=== PATIENT | male | born 1955 | race Caucasian/White ===

== ENCOUNTER 2024-02-27 00:55 | Inpatient (IN) | payer MEDICARE, SELFPAY ==
[2024-02-27 01:15] VITALS: BP 109/71; PULSE 86; RESP 18; TEMP 36.5; O2SAT 96
[2024-02-27 01:49] VITALS: BMI 30.5
--- NOTE | 2024-02-27 03:04 | PC.ADMIT ---
patient is a hospital to hospital transfer from [facility], He had a COPD exacerbation and SI, he arrived on unit 02/27/24@0115 via stretcher, he is a CV, has HX Schizophrenia, Bipolar, PTSD, Medical Hx lung CA with right Pneumonectomy, COPD, epilepsy and ETOH d/o, p86, r18, 109/71, SAO2 96%@RA but has wheezing, hospitalist aware, pt had SI d/t medicaid took his SSI money but he now denies SI and contracts for safety, patient was calm, A&O to person, time and Place, and stated his goal for this admission was to get the voices to stop , patient signed 3 consents and answered a few questions and quickly became irritable and agitated and shut down declining to participate in admission, patient was visible tired and was put to bed and went right to sleep, patient came with [facility], a black t shirt and wheeled walker, patient said all of his belongings are at [facility].
[2024-02-27 08:00] VITALS: BP 108/76; PULSE 89; RESP 16; TEMP 36; O2SAT 93
--- NOTE | 2024-02-27 08:13 | P.HPPS_ITS ---
HPI Date of Service: 02/27/24 Chief Complaint: Schizophrenia Sources of Information: patient interviewed, chart reviewed and crisis/core team assessment reviewed HPI Subjective Notes: Bustos Warning Narrative: The patient is a 68-year-old male, single, with no children, chronically homeless for several years, with a past history of alcohol use disorder, psychosis and suicidality. The patient was initially admitted at [facility] in [place] from outside of our catchment area, from [place], for suicidal ideation. While he was at the psychiatric hospital the patient decompensated medically, he had shortness of breath and he was transfer to [facility] for medical clearance. He was medically cleared and transferred here for psychiatric stabilization. The patient while he was at [facility] reported that he was feeling much better with no suicidal ideation. Even though, he was transferring to this facility for continuation of care and treatment of his dysphoria. On the intake interview, the patient reported that he was initially suicidal a few days ago but currently he adamantly denies suicidal ideation. He admitted a past history of alcohol use disorder with chronic homelessness and several detox and rehabs. His last use of alcohol was at least 3 weeks ago. He has several prior admissions into the psychiatric hospital for suicidality. He also admitted a past history of psychotic symptoms in the context of psychosocial stressors such as paranoia, disorganized behavior and auditory hallucinations. At the moment of the interview, the patient was able to contract for safety and he was willing to verbalize that he felt overwhelmed. According to the nursing staff, when he came last night he was very irritable and angry and cooperative with care. He denies active psychotic symptoms. He also reported that he has a past history of seizure disorder and he was requesting his Dilantin. Past Psychiatric History: He has an extensive psychiatric history as places report with several admissions into the hospital for suicidality. He also reported history of substance abuse with alcohol use disorder with detox and rehabs. He is chronically homeless. Medical Evaluation Reviewed: Yes PMF Narrative: COPD Alcohol use disorder chronic Family History: Denies Social History: Chronically homeless, no history of previous marriages or children poor social support. Substance History: As per his report past history of alcohol use disorder with several detox and rehabs well-healed reported legal encounters due to alcohol use disorder. Trauma History: Refused to elaborate Diagnostics Vital Signs (24Hr): Vital Signs - 24 hr 02/27/24 01:15 Temperature 97.7 F Pulse Rate 86 Respiratory Rate 18 Blood Pressure 109/71 Pulse Oximetry 96 Oxygen Delivery Method Room Air BMI result Body Mass Index 30.5 Meds/Allergies Meds Home Medications ?Medication ?Instructions ?Recorded ?Confirmed ?Type albuterol sulfate 90 mcg/actuation 4 puff inhalation Q4H PRN 02/27/24 02/27/24 History aerosol inhaler (Ventolin HFA) Shortness Of Breath Or Wheezing dextromethorphan-guaifenesin 10 10 ml PO Q4H PRN Cough 02/27/24 02/27/24 History mg-100 mg/5 mL oral syrup divalproex 250 mg tablet,delayed 750 mg PO TID 02/27/24 02/27/24 History release (Depakote) finasteride 5 mg tablet 5 mg PO DAILY 02/27/24 02/27/24 History gabapentin 300 mg capsule 300 mg PO TID 02/27/24 02/27/24 History pantoprazole 20 mg tablet,delayed 20 mg PO DAILY 02/27/24 02/27/24 History release phenytoin sodium extended 200 mg 200 mg PO BID 02/27/24 02/27/24 History capsule propranolol 10 mg tablet 10 mg PO BID 02/27/24 02/27/24 History quetiapine 300 mg tablet 300 mg PO BEDTIME 02/27/24 02/27/24 History quetiapine 400 mg tablet 400 mg PO BID 02/27/24 02/27/24 History tamsulosin 0.4 mg capsule 0.4 mg PO DAILY 02/27/24 02/27/24 History tiotropium bromide 2.5 2 puff inhalation DAILY 02/27/24 02/27/24 History mcg/actuation mist for inhalation Allergies Allergies Allergy/AdvReac Type Severity Reaction Status Date / Time levetiracetam [From [facility]] Allergy Unknown Unknown Verified 02/27/24 00:42 contrast dye Allergy Unknown unknown Uncoded 02/27/24 00:42 Mental Status Exam Mental Status Exam Patient Appearance: Well Grooomed and Appropriate Patient Orientation: Person and Situation Level of Consciousness: Awake and Appropriate Patient Behavior: Appropriate Mood Description: Calm and Withdrawn Affect Description: Constricted Ability to Follow Directions: Good Speech Pattern: Clear Hallucinations: None Delusions: Ideas of Reference Thought Process: Goal Oriented and Linear Thought Content: positive for Circumstantial Judgement: Poor Assessment & Plan Assessment & Plan (1) Alcohol use disorder: Status: Acute Code(s): F10.90 - Alcohol use, unspecified, uncomplicated (2) Mood disorder: Status: Acute Code(s): F39 - Unspecified mood [affective] disorder (3) Psychosis: Status: Acute Code(s): F29 - Unspecified psychosis not due to a substance or known physiological condition (4) Homelessness: Status: Acute Code(s): Z59.00 - Homelessness unspecified Plan The patient is an elderly male, single, with no children with poor social support with a past history of alcohol use disorder, chronic homelessness, psychosis and mood lability initially admitted at another hospital for suicidality but later on transferred to [facility] for shortness of breast. Medically cleared and transferred hearing to this facility for continuation of care at this moment the patient denies suicidal ideation. Plan 1. Gather collateral information. 2. 15 minute checks since the patient is able to contract for safety. 3. Continue with Seroquel and other psychotropics as prescribed. 4. Medical follow-up. 5. Reassessment results Patient educated on: diagnosis, medication risk/benefits and medical condition Reason for continued inpatient stay Substantial Risk for: inability to function, rapid decompensation and med/psych decompensation Statement Statement: I have reviewed the history and physical and performed a pertinent examination on my patient. No changes have occurred unless specified. If the History and Physical was not performed prior to admission, the Hospitalist's service will be consulted for completing the admission physical. Time Spent With Patient Time: Total time managing care of this patient today _45___ minutes.
--- NOTE | 2024-02-27 08:43 | PM.EVENT ---
Event Note Date of Service: 02/27/24 Event Note: attempted to meet with pt for new admission medical consult. we reviewed his medical hx, BPH, GERD, COPD with recent exacerbation and ?PNA, hx lung cancer s/p R pneumonectomy, epilepsy (last seizure 3-4 weeks ago) with triggers being lack of medication or sleep, as well as hx of etoh abuse. his last drink was 1 month ago, has been drinking heavily 1x/week for 20+ years. he became very agitated and refused to talk more and threatened to walk off the unit until he has his belongings. I assured him we would work on this and became more angry and walked out. Time Spent With Patient Time: Total time managing care of this patient today 10 minutes.
--- NOTE | 2024-02-27 10:12 | PC.NURSE ---
Abelino refused all of his morning medications. Reported he won't take them unless I find his clothes . Pt was sitting in bed dressed, no note about belonging missing. Will continue to monitor and MD Dr. Nowak made aware via [employer].
[2024-02-27] MEDS: Phenytoin Sodium Extended 100 MG CAPSULE 200 MG PO ×2 (13:50→20:13)
[2024-02-27] MEDS: Gabapentin 300 MG CAPSULE PO ×2 (15:01→20:15)
[2024-02-27] MEDS: Divalproex Sodium 250 MG TABLET.DR 750 MG PO ×2 (15:02→20:14)
[2024-02-27] MEDS: Albuterol Sulfate 90 MCG 8 GM INHALER 4 PUFF INHALE (18:33)
[2024-02-27] MEDS: QUEtiapine Fumarate 400 MG TABLET PO ×2 (18:44)
[2024-02-27 20:00] VITALS: BP 132/82; PULSE 90; RESP 16; TEMP 36.2; O2SAT 96
[2024-02-27 20:13] VITALS: BP 132/82; PULSE 90
[2024-02-27] MEDS: Propranolol HCL 10 MG TABLET PO (20:13)
[2024-02-27] MEDS: traZODone HCL 50 MG TABLET PO (20:15)
[2024-02-28 08:00] VITALS: RESP 18
[2024-02-28 13:42] VITALS: BMI 29.8
--- NOTE | 2024-02-28 14:27 | HO.PSYCHPN ---
Subjective Subjective Date of Service: 02/28/24 Reason For Visit: Schizophrenia Subjective Notes: Conditional Voluntary Interim History: The nursing staff reported the patient has refused blood work. He complained of sporadic auditory hallucinations. On interview the patient denies new symptoms states that he is doing much better and I advised him to be compliant with blood work. He is more concerned about his belongings that stayed behind. Mental Status Exam Mental Status Exam Patient Appearance: Appropriate Patient Orientation: Person and Situation Level of Consciousness: Awake and Appropriate Patient Behavior: Guarded and Passive Mood Description: Withdrawn Affect Description: Constricted Patient Cognition Impaired: Yes Ability to Follow Directions: Good Speech Pattern: Clear Hallucinations: None Delusions: Not Present Thought Process: Distracted and Slowed Thinking Thought Content: positive for [place] and positive for Circumstantial Judgement: Poor Diagnostics Vital Signs (24Hr): Vital Signs - 24 hr 02/27/24 20:00 02/27/24 20:00 02/27/24 20:13 Temperature 97.2 F 97.2 F Pulse Rate 90 90 90 Respiratory Rate 16 16 Blood Pressure 132/82 132/82 132/82 Pulse Oximetry 96 96 Oxygen Delivery Method Room Air Room Air 02/28/24 08:00 Temperature Pulse Rate Respiratory Rate 18 Blood Pressure Pulse Oximetry Oxygen Delivery Method BMI result Body Mass Index 29.8 Medications Medications Current Medications Acetaminophen (Acetaminophen 325 Mg Tablet) 650 mg PO Q6H PRN PRN Reason: Headache/Pain Mild Scale (1-3) Al Hydroxide/Mg Hydroxide (Magnesium Hydrox/Alum Hydrox 30 Ml Oral.Susp) 30 ml PO Q6H PRN PRN Reason: Heartburn/Nausea Albuterol Sulfate (Albuterol Sulfate 90 Mcg 8 Gm Inhaler) 4 puff INHALE Q4H PRN PRN Reason: Shortness Of Breath Or Wheezing Last Admin: 02/27/24 18:33 Dose: 4 puff Divalproex Sodium (Divalproex Sodium 250 Mg Tablet.Dr) 750 mg PO TID [facility] Last Admin: 02/28/24 10:59 Dose: Not Given Finasteride (Finasteride 5 Mg Tablet) 5 mg PO DAILY [facility] Last Admin: 02/28/24 10:59 Dose: Not Given Gabapentin (Gabapentin 300 Mg Capsule) 300 mg PO TID [facility] Last Admin: 02/28/24 11:00 Dose: Not Given Guaifenesin/Dextromethorphan (Guaifenesin Dm 200/20/10 Ml 10 Ml Syrup) 10 ml PO Q4H PRN PRN Reason: Cough Magnesium Hydroxide (Milk Of Magnesia 30 Ml Oral.Susp) 30 ml PO DAILY PRN PRN Reason: Constipation Nicotine (Nicotine 21 Mg Patch.Td24) 21 mg TRANSDERMA DAILY PRN PRN Reason: smoking cessation Nicotine Polacrilex (Nicotine Polacrilex 2 Mg Gum) 4 mg BUCCAL Q2H PRN PRN Reason: Nicotine Cravings Olanzapine (Olanzapine 5 Mg Tablet) 5 mg PO TID PRN PRN Reason: agitation Omeprazole (Omeprazole 20 Mg Capsule.Dr) 20 mg PO DAILY@0630 [facility] Last Admin: 02/28/24 06:19 Dose: Not Given Phenytoin Sodium (Phenytoin Sodium Extended 100 Mg Capsule) 200 mg PO BID [facility] Last Admin: 02/28/24 11:00 Dose: Not Given Propranolol HCl (Propranolol Hcl 10 Mg Tablet) 10 mg PO BID [facility]; Protocol Last Admin: 02/28/24 11:00 Dose: Not Given Quetiapine Fumarate (Quetiapine Fumarate 300 Mg Tablet) 300 mg PO BEDTIME [facility] Last Admin: 02/27/24 22:47 Dose: Not Given Quetiapine Fumarate (Quetiapine Fumarate 400 Mg Tablet) 400 mg PO BID@0900,1500 [facility] Last Admin: 02/27/24 18:44 Dose: 400 mg Tamsulosin HCl (Tamsulosin Hcl 0.4 Mg Capsule) 0.4 mg PO DAILY [facility] Last Admin: 02/28/24 11:00 Dose: Not Given Tiotropium [place] (Tiotropium [place] 2.5 Mcg 1 Puff/2.5 Mcg Mist.Inhal) 2 puff INHALE DAILY [facility] Last Admin: 02/28/24 11:00 Dose: Not Given Trazodone HCl (Trazodone Hcl 50 Mg Tablet) 50 mg PO BEDTIME MRX1 PRN PRN Reason: Insomnia Last Admin: 02/27/24 20:15 Dose: 50 mg Allergies Allergies Allergy/AdvReac Type Severity Reaction Status Date / Time levetiracetam [From [facility]] Allergy Unknown Unknown Verified 02/27/24 00:42 contrast dye Allergy Unknown unknown Uncoded 02/27/24 00:42 Assessment & Plan Assessment & Plan (1) Alcohol use disorder: Status: Acute Code(s): F10.90 - Alcohol use, unspecified, uncomplicated (2) Mood disorder: Status: Acute Code(s): F39 - Unspecified mood [affective] disorder (3) Psychosis: Status: Acute Code(s): F29 - Unspecified psychosis not due to a substance or known physiological condition (4) Homelessness: Status: Acute Code(s): Z59.00 - Homelessness unspecified Plan The patient is an elderly male, single, with no children with poor social support with a past history of alcohol use disorder, chronic homelessness, psychosis and mood lability initially admitted at another hospital for suicidality but later on transferred to [facility] for shortness of breast. Medically cleared and transferred hearing to this facility for continuation of care at this moment the patient denies suicidal ideation. Plan 1. Gather collateral information. 2. 15 minute checks since the patient is able to contract for safety. 3. Continue with Seroquel and other psychotropics as prescribed. 4. Medical follow-up. 5. Reassessment results Reason for continued inpatient stay Substantial Risk for: inability to function, rapid decompensation and med/psych decompensation Time Spent With Patient Time: Total time managing care of this patient today __20__ minutes.
[2024-02-28] MEDS: Tiotropium Bromide 2.5 mcg 1 PUFF/2.5 MCG MIST.INHAL 2 PUFF INHALE (15:34)
[2024-02-28] MEDS: Divalproex Sodium 250 MG TABLET.DR 750 MG PO ×2 (15:35→20:45)
[2024-02-28] MEDS: Gabapentin 300 MG CAPSULE PO ×2 (15:35→20:44)
[2024-02-28] MEDS: QUEtiapine Fumarate 400 MG TABLET PO (15:36)
--- NOTE | 2024-02-28 19:18 | PC.NURSE ---
Social work has located Abelino's belongings at [facility], staff is not able to pickling grader due to liability issues- Leadership will arrange retrieval of belongings. Abelino signed a three day notice on 02/28/24.
[2024-02-28 19:43] VITALS: BP 101/62; PULSE 96; RESP 18; TEMP 37; O2SAT 91
[2024-02-28] MEDS: Phenytoin Sodium Extended 100 MG CAPSULE 200 MG PO (20:44)
[2024-02-28] MEDS: Propranolol HCL 10 MG TABLET PO (20:44)
[2024-02-28] MEDS: QUEtiapine Fumarate 300 MG TABLET PO (20:44)
[2024-02-29] MEDS: Omeprazole 20 MG CAPSULE.DR PO (06:14)
[2024-02-29] MEDS: Finasteride 5 MG TABLET PO (10:27)
[2024-02-29] MEDS: QUEtiapine Fumarate 400 MG TABLET PO (10:27)
[2024-02-29] MEDS: Gabapentin 300 MG CAPSULE PO ×2 (10:28→20:53)
[2024-02-29] MEDS: Phenytoin Sodium Extended 100 MG CAPSULE 200 MG PO ×2 (10:28→20:53)
[2024-02-29] MEDS: Divalproex Sodium 250 MG TABLET.DR 750 MG PO ×2 (10:29→20:53)
[2024-02-29] MEDS: Tiotropium Bromide 2.5 mcg 1 PUFF/2.5 MCG MIST.INHAL 2 PUFF INHALE (10:30)
[2024-02-29] MEDS: Tamsulosin HCL 0.4 MG CAPSULE PO (10:31)
[2024-02-29 10:33] VITALS: BP 132/83; PULSE 97; RESP 18; TEMP 36.6; O2SAT 94
[2024-02-29] MEDS: Propranolol HCL 10 MG TABLET PO ×2 (10:56→20:53)
--- NOTE | 2024-02-29 11:49 | HO.PSYCHPN ---
Subjective Subjective Date of Service: 02/29/24 Reason For Visit: Schizophrenia Subjective Notes: Conditional Voluntary Interim History: The nursing staff reported the patient signed a 3 day notice since he was frustrated regarding his clothes. The administration has review his case and apparently his belongings are at another hospital [facility] but we can not go and pick it up. On interview the patient denies new symptoms he states that he hears sporadic auditory hallucinations but he is able to contract for safety. Mental Status Exam Mental Status Exam Patient Appearance: Well Grooomed Patient Orientation: Person and Situation Level of Consciousness: Awake and Appropriate Patient Behavior: Guarded and Passive Mood Description: Withdrawn Affect Description: Constricted Patient Cognition Impaired: Yes Ability to Follow Directions: Good Speech Pattern: Clear Hallucinations: None Delusions: Not Present Thought Process: Distracted and Slowed Thinking Thought Content: positive for [place] and positive for Poverty of Content Judgement: Poor Diagnostics Vital Signs (24Hr): Vital Signs - 24 hr 02/28/24 19:43 02/29/24 10:33 Temperature 98.6 F 97.9 F Pulse Rate 96 97 Respiratory Rate 18 18 Blood Pressure 101/62 132/83 Pulse Oximetry 91 L 94 Oxygen Delivery Method Room Air Room Air BMI result Body Mass Index 29.8 Medications Medications Current Medications Acetaminophen (Acetaminophen 325 Mg Tablet) 650 mg PO Q6H PRN PRN Reason: Headache/Pain Mild Scale (1-3) Al Hydroxide/Mg Hydroxide (Magnesium Hydrox/Alum Hydrox 30 Ml Oral.Susp) 30 ml PO Q6H PRN PRN Reason: Heartburn/Nausea Albuterol Sulfate (Albuterol Sulfate 90 Mcg 8 Gm Inhaler) 4 puff INHALE Q4H PRN PRN Reason: Shortness Of Breath Or Wheezing Last Admin: 02/27/24 18:33 Dose: 4 puff Divalproex Sodium (Divalproex Sodium 250 Mg Tablet.Dr) 750 mg PO TID [facility] Last Admin: 02/29/24 10:29 Dose: 750 mg Finasteride (Finasteride 5 Mg Tablet) 5 mg PO DAILY [facility] Last Admin: 02/29/24 10:27 Dose: 5 mg Gabapentin (Gabapentin 300 Mg Capsule) 300 mg PO TID [facility] Last Admin: 02/29/24 10:28 Dose: 300 mg Guaifenesin/Dextromethorphan (Guaifenesin Dm 200/20/10 Ml 10 Ml Syrup) 10 ml PO Q4H PRN PRN Reason: Cough Magnesium Hydroxide (Milk Of Magnesia 30 Ml Oral.Susp) 30 ml PO DAILY PRN PRN Reason: Constipation Nicotine (Nicotine 21 Mg Patch.Td24) 21 mg TRANSDERMA DAILY PRN PRN Reason: smoking cessation Nicotine Polacrilex (Nicotine Polacrilex 2 Mg Gum) 4 mg BUCCAL Q2H PRN PRN Reason: Nicotine Cravings Olanzapine (Olanzapine 5 Mg Tablet) 5 mg PO TID PRN PRN Reason: agitation Omeprazole (Omeprazole 20 Mg Capsule.Dr) 20 mg PO DAILY@0630 [facility] Last Admin: 02/29/24 06:14 Dose: 20 mg Phenytoin Sodium (Phenytoin Sodium Extended 100 Mg Capsule) 200 mg PO BID [facility] Last Admin: 02/29/24 10:28 Dose: 200 mg Propranolol HCl (Propranolol Hcl 10 Mg Tablet) 10 mg PO BID [facility]; Protocol Last Admin: 02/29/24 10:56 Dose: 10 mg Quetiapine Fumarate (Quetiapine Fumarate 300 Mg Tablet) 300 mg PO BEDTIME [facility] Last Admin: 02/28/24 20:44 Dose: 300 mg Quetiapine Fumarate (Quetiapine Fumarate 400 Mg Tablet) 400 mg PO BID@0900,1500 [facility] Last Admin: 02/29/24 10:27 Dose: 400 mg Tamsulosin HCl (Tamsulosin Hcl 0.4 Mg Capsule) 0.4 mg PO DAILY [facility] Last Admin: 02/29/24 10:31 Dose: 0.4 mg Tiotropium Avinger (Tiotropium [place] 2.5 Mcg 1 Puff/2.5 Mcg Mist.Inhal) 2 puff INHALE DAILY [facility] Last Admin: 02/29/24 10:30 Dose: 2 puff Trazodone HCl (Trazodone Hcl 50 Mg Tablet) 50 mg PO BEDTIME MRX1 PRN PRN Reason: Insomnia Last Admin: 02/27/24 20:15 Dose: 50 mg Allergies Allergies Allergy/AdvReac Type Severity Reaction Status Date / Time levetiracetam [From [facility]] Allergy Unknown Unknown Verified 02/27/24 00:42 contrast dye Allergy Unknown unknown Uncoded 02/27/24 00:42 Assessment & Plan Assessment & Plan (1) Alcohol use disorder: Status: Acute Code(s): F10.90 - Alcohol use, unspecified, uncomplicated (2) Mood disorder: Status: Acute Code(s): F39 - Unspecified mood [affective] disorder (3) Psychosis: Status: Acute Code(s): F29 - Unspecified psychosis not due to a substance or known physiological condition (4) Homelessness: Status: Acute Code(s): Z59.00 - Homelessness unspecified Plan The patient is an elderly male, single, with no children with poor social support with a past history of alcohol use disorder, chronic homelessness, psychosis and mood lability initially admitted at another hospital for suicidality but later on transferred to [facility] for shortness of breast. Medically cleared and transferred hearing to this facility for continuation of care at this moment the patient denies suicidal ideation. Plan 1. Gather collateral information. 2. 15 minute checks since the patient is able to contract for safety. 3. Continue with Seroquel and other psychotropics as prescribed. 4. Medical follow-up. 5. Reassessment results Reason for continued inpatient stay Substantial Risk for: inability to function, rapid decompensation and med/psych decompensation Time Spent With Patient Time: Total time managing care of this patient today __20__ minutes.
[2024-02-29 20:00] VITALS: BP 128/60; PULSE 89; RESP 16; TEMP 36.2; O2SAT 91
[2024-02-29 20:53] VITALS: BP 129/61; PULSE 72
[2024-02-29] MEDS: QUEtiapine Fumarate 300 MG TABLET PO (20:54)
[2024-03-01] MEDS: Omeprazole 20 MG CAPSULE.DR PO (06:20)
[2024-03-01 08:00] VITALS: BP 110/55; PULSE 83; RESP 18; TEMP 37.1; O2SAT 95
--- NOTE | 2024-03-01 08:40 | HO.PSYCHPN ---
Subjective Subjective Date of Service: 03/01/24 Reason For Visit: Schizophrenia Subjective Notes: Conditional Voluntary Interim History: Pt had episode of being once again very irritable about not having belonging with him- they are [place]. He did calm down later when explained that worse case scenario he can be sent to [facility] on his way home when discharged. He denies SI/HI. He reports plan to dc on Sunday and then go to [place] to [facility]. rest of the day, he was pleasant and visible on the unit. he reports morning dose of seroquel too sedating Diagnostics Vital Signs (24Hr): Vital Signs - 24 hr 02/29/24 10:33 02/29/24 20:00 02/29/24 20:53 Temperature 97.9 F 97.1 F Pulse Rate 97 89 72 Respiratory Rate 18 16 Blood Pressure 132/83 128/60 129/61 Pulse Oximetry 94 91 L Oxygen Delivery Method Room Air Room Air 03/01/24 08:00 Temperature 98.7 F Pulse Rate 83 Respiratory Rate 18 Blood Pressure 110/55 L Pulse Oximetry 95 Oxygen Delivery Method Room Air BMI result Body Mass Index 29.8 Medications Medications Current Medications Acetaminophen (Acetaminophen 325 Mg Tablet) 650 mg PO Q6H PRN PRN Reason: Headache/Pain Mild Scale (1-3) Al Hydroxide/Mg Hydroxide (Magnesium Hydrox/Alum Hydrox 30 Ml Oral.Susp) 30 ml PO Q6H PRN PRN Reason: Heartburn/Nausea Albuterol Sulfate (Albuterol Sulfate 90 Mcg 8 Gm Inhaler) 4 puff INHALE Q4H PRN PRN Reason: Shortness Of Breath Or Wheezing Last Admin: 02/27/24 18:33 Dose: 4 puff Divalproex Sodium (Divalproex Sodium 250 Mg Tablet.Dr) 750 mg PO TID [facility] Last Admin: 02/29/24 20:53 Dose: 750 mg Finasteride (Finasteride 5 Mg Tablet) 5 mg PO DAILY [facility] Last Admin: 02/29/24 10:27 Dose: 5 mg Gabapentin (Gabapentin 300 Mg Capsule) 300 mg PO TID [facility] Last Admin: 02/29/24 20:53 Dose: 300 mg Guaifenesin/Dextromethorphan (Guaifenesin Dm 200/20/10 Ml 10 Ml Syrup) 10 ml PO Q4H PRN PRN Reason: Cough Magnesium Hydroxide (Milk Of Magnesia 30 Ml Oral.Susp) 30 ml PO DAILY PRN PRN Reason: Constipation Nicotine (Nicotine 21 Mg Patch.Td24) 21 mg TRANSDERMA DAILY PRN PRN Reason: smoking cessation Nicotine Polacrilex (Nicotine Polacrilex 2 Mg Gum) 4 mg BUCCAL Q2H PRN PRN Reason: Nicotine Cravings Olanzapine (Olanzapine 5 Mg Tablet) 5 mg PO TID PRN PRN Reason: agitation Omeprazole (Omeprazole 20 Mg Capsule.Dr) 20 mg PO DAILY@0630 [facility] Last Admin: 03/01/24 06:20 Dose: 20 mg Phenytoin Sodium (Phenytoin Sodium Extended 100 Mg Capsule) 200 mg PO BID [facility] Last Admin: 02/29/24 20:53 Dose: 200 mg Propranolol HCl (Propranolol Hcl 10 Mg Tablet) 10 mg PO BID [facility]; Protocol Last Admin: 02/29/24 20:53 Dose: 10 mg Quetiapine Fumarate (Quetiapine Fumarate 300 Mg Tablet) 300 mg PO BEDTIME [facility] Last Admin: 02/29/24 20:54 Dose: 300 mg Quetiapine Fumarate (Quetiapine Fumarate 400 Mg Tablet) 400 mg PO BID@0900,1500 [facility] Last Admin: 02/29/24 18:42 Dose: Not Given Tamsulosin HCl (Tamsulosin Hcl 0.4 Mg Capsule) 0.4 mg PO DAILY [facility] Last Admin: 02/29/24 10:31 Dose: 0.4 mg Tiotropium [place] (Tiotropium [place] 2.5 Mcg 1 Puff/2.5 Mcg Mist.Inhal) 2 puff INHALE DAILY [facility] Last Admin: 02/29/24 10:30 Dose: 2 puff Trazodone HCl (Trazodone Hcl 50 Mg Tablet) 50 mg PO BEDTIME MRX1 PRN PRN Reason: Insomnia Last Admin: 02/27/24 20:15 Dose: 50 mg Allergies Allergies Allergy/AdvReac Type Severity Reaction Status Date / Time levetiracetam [From [facility]] Allergy Unknown Unknown Verified 02/27/24 00:42 contrast dye Allergy Unknown unknown Uncoded 02/27/24 00:42 Assessment & Plan Assessment & Plan (1) Alcohol use disorder: Status: Acute Code(s): F10.90 - Alcohol use, unspecified, uncomplicated (2) Mood disorder: Status: Acute Code(s): F39 - Unspecified mood [affective] disorder (3) Psychosis: Status: Acute Code(s): F29 - Unspecified psychosis not due to a substance or known physiological condition (4) Homelessness: Status: Acute Code(s): Z59.00 - Homelessness unspecified Plan The patient is an elderly male, single, with no children with poor social support with a past history of alcohol use disorder, chronic homelessness, psychosis and mood lability initially admitted at another hospital for suicidality but later on transferred to [facility] for shortness of breast. Medically cleared and transferred hearing to this facility for continuation of care at this moment the patient denies suicidal ideation. Plan 1. Gather collateral information. 2. 15 minute checks since the patient is able to contract for safety. 3. Continue with Seroquel and other psychotropics as prescribed- he does report seroquel sedating in morning and has declined it. 4. Medical follow-up. Reason for continued inpatient stay Substantial Risk for: inability to function Time Spent With Patient Time: Total time managing care of this patient today ____ minutes.
[2024-03-01] MEDS: Phenytoin Sodium Extended 100 MG CAPSULE 200 MG PO ×2 (09:31→20:59)
[2024-03-01] MEDS: Divalproex Sodium 250 MG TABLET.DR 750 MG PO ×2 (14:55→20:59)
[2024-03-01] MEDS: Gabapentin 300 MG CAPSULE PO ×2 (14:55→20:59)
[2024-03-01] MEDS: QUEtiapine Fumarate 400 MG TABLET PO (14:55)
[2024-03-01 20:00] VITALS: BP 107/57; PULSE 90; RESP 17; TEMP 36.9; O2SAT 93
[2024-03-01 20:58] VITALS: BP 107/57; PULSE 90
[2024-03-01] MEDS: Propranolol HCL 10 MG TABLET PO (20:58)
[2024-03-01] MEDS: QUEtiapine Fumarate 300 MG TABLET PO (20:58)
[2024-03-02] MEDS: Finasteride 5 MG TABLET PO (08:58)
[2024-03-02] MEDS: Tiotropium Bromide 2.5 mcg 1 PUFF/2.5 MCG MIST.INHAL 2 PUFF INHALE (08:58)
[2024-03-02] MEDS: Phenytoin Sodium Extended 100 MG CAPSULE 200 MG PO ×2 (08:59→20:29)
[2024-03-02] MEDS: Divalproex Sodium 250 MG TABLET.DR 750 MG PO ×3 (08:59→20:30)
[2024-03-02] MEDS: Omeprazole 20 MG CAPSULE.DR PO (09:00)
[2024-03-02] MEDS: Gabapentin 300 MG CAPSULE PO ×3 (09:00→20:29)
[2024-03-02 09:01] VITALS: BP 138/92; PULSE 84
[2024-03-02] MEDS: Tamsulosin HCL 0.4 MG CAPSULE PO (09:01)
[2024-03-02] MEDS: Propranolol HCL 10 MG TABLET PO ×2 (09:01→20:28)
[2024-03-02 09:05] VITALS: BP 138/92; PULSE 84; RESP 18; TEMP 36.8; O2SAT 96
--- NOTE | 2024-03-02 19:53 | P.PNPSI_ITS ---
Subjective Subjective Date of Service: 03/02/24 Reason For Visit: Schizophrenia Subjective Notes: Conditional Voluntary Interim History: Pt slept most of the night. Calmer, no episodes of irritability. Agreed with being sent to [facility] belongings on his way back home either Sunday or Sunday early in the morning. hold seroquel AM as pt reports sedation and not taking it in the AM. No behavioral concerns. Review of Systems Review of Systems Yes all other systems are reviewed and are negative Mental Status Exam Mental Status Exam Patient Appearance: Well Grooomed Patient Orientation: Person and Situation Level of Consciousness: Awake and Appropriate Patient Behavior: Guarded and Passive Mood Description: Withdrawn Affect Description: Constricted Patient Cognition Impaired: Yes Ability to Follow Directions: Good Speech Pattern: Clear Diagnostics Vital Signs (24Hr): Vital Signs - 24 hr 03/01/24 20:00 03/01/24 20:58 03/02/24 09:01 Temperature 98.5 F Pulse Rate 90 90 84 Respiratory Rate 17 Blood Pressure 107/57 L 107/57 L 138/92 H Pulse Oximetry 93 Oxygen Delivery Method Room Air 03/02/24 09:05 Temperature 98.2 F Pulse Rate 84 Respiratory Rate 18 Blood Pressure 138/92 H Pulse Oximetry 96 Oxygen Delivery Method Room Air BMI result Body Mass Index 29.8 Medications Medications Current Medications Acetaminophen (Acetaminophen 325 Mg Tablet) 650 mg PO Q6H PRN PRN Reason: Headache/Pain Mild Scale (1-3) Al Hydroxide/Mg Hydroxide (Magnesium Hydrox/Alum Hydrox 30 Ml Oral.Susp) 30 ml PO Q6H PRN PRN Reason: Heartburn/Nausea Albuterol Sulfate (Albuterol Sulfate 90 Mcg 8 Gm Inhaler) 4 puff INHALE Q4H PRN PRN Reason: Shortness Of Breath Or Wheezing Last Admin: 02/27/24 18:33 Dose: 4 puff Divalproex Sodium (Divalproex Sodium 250 Mg Tablet.Dr) 750 mg PO TID [facility] Last Admin: 03/02/24 14:28 Dose: 750 mg Finasteride (Finasteride 5 Mg Tablet) 5 mg PO DAILY [facility] Last Admin: 03/02/24 08:58 Dose: 5 mg Gabapentin (Gabapentin 300 Mg Capsule) 300 mg PO TID [facility] Last Admin: 03/02/24 14:28 Dose: 300 mg Guaifenesin/Dextromethorphan (Guaifenesin Dm 200/20/10 Ml 10 Ml Syrup) 10 ml PO Q4H PRN PRN Reason: Cough Magnesium Hydroxide (Milk Of Magnesia 30 Ml Oral.Susp) 30 ml PO DAILY PRN PRN Reason: Constipation Nicotine (Nicotine 21 Mg Patch.Td24) 21 mg TRANSDERMA DAILY PRN PRN Reason: smoking cessation Nicotine Polacrilex (Nicotine Polacrilex 2 Mg Gum) 4 mg BUCCAL Q2H PRN PRN Reason: Nicotine Cravings Olanzapine (Olanzapine 5 Mg Tablet) 5 mg PO TID PRN PRN Reason: agitation Omeprazole (Omeprazole 20 Mg Capsule.Dr) 20 mg PO DAILY@0630 [facility] Last Admin: 03/02/24 09:00 Dose: 20 mg Phenytoin Sodium (Phenytoin Sodium Extended 100 Mg Capsule) 200 mg PO BID [facility] Last Admin: 03/02/24 08:59 Dose: 200 mg Propranolol HCl (Propranolol Hcl 10 Mg Tablet) 10 mg PO BID [facility]; Protocol Last Admin: 03/02/24 09:01 Dose: 10 mg Quetiapine Fumarate (Quetiapine Fumarate 300 Mg Tablet) 300 mg PO BEDTIME [facility] Last Admin: 03/01/24 20:58 Dose: 300 mg Quetiapine Fumarate (Quetiapine Fumarate 400 Mg Tablet) 400 mg PO BID@0900,1500 [facility] Last Admin: 03/02/24 14:28 Dose: Not Given Tamsulosin HCl (Tamsulosin Hcl 0.4 Mg Capsule) 0.4 mg PO DAILY [facility] Last Admin: 03/02/24 09:01 Dose: 0.4 mg Tiotropium [place] (Tiotropium [place] 2.5 Mcg 1 Puff/2.5 Mcg Mist.Inhal) 2 puff INHALE DAILY [facility] Last Admin: 03/02/24 08:58 Dose: 2 puff Trazodone HCl (Trazodone Hcl 50 Mg Tablet) 50 mg PO BEDTIME MRX1 PRN PRN Reason: Insomnia Last Admin: 02/27/24 20:15 Dose: 50 mg Allergies Allergies Allergy/AdvReac Type Severity Reaction Status Date / Time levetiracetam [From [facility]] Allergy Unknown Unknown Verified 02/27/24 00:42 contrast dye Allergy Unknown unknown Uncoded 02/27/24 00:42 Assessment & Plan Assessment & Plan (1) Mood disorder: Status: Acute Code(s): F39 - Unspecified mood [affective] disorder (2) Alcohol use disorder: Status: Acute Code(s): F10.90 - Alcohol use, unspecified, uncomplicated (3) Psychosis: Status: Acute Code(s): F29 - Unspecified psychosis not due to a substance or known physiological condition (4) Homelessness: Status: Acute Code(s): Z59.00 - Homelessness unspecified Plan The patient is an elderly male, single, with no children with poor social support with a past history of alcohol use disorder, chronic homelessness, psychosis and mood lability initially admitted at another hospital for suicidality but later on transferred to [facility] for shortness of breast. Medically cleared and transferred hearing to this facility for continuation of care at this moment the patient denies suicidal ideation. Plan 03/01 dc morning seroquel as pt reports sedation in AM. continue all other doses. Reason for continued inpatient stay Substantial Risk for: inability to function Time Spent With Patient Time: Total time managing care of this patient today ____ minutes.
[2024-03-02 20:00] VITALS: BP 141/64; PULSE 87; RESP 16; TEMP 37.9; O2SAT 95
[2024-03-02] MEDS: traZODone HCL 50 MG TABLET PO (20:29)
[2024-03-02] MEDS: QUEtiapine Fumarate 300 MG TABLET PO (20:30)
[2024-03-02] MEDS: guaiFENesin DM 200/20/10 ML 10 ML SYRUP PO (20:35)
[2024-03-02 22:02] VITALS: RESP 18; TEMP 36.8
[2024-03-03] MEDS: Omeprazole 20 MG CAPSULE.DR PO (06:30)
[2024-03-03 08:00] VITALS: BP 146/81; PULSE 92; RESP 18; TEMP 36.9; O2SAT 95
[2024-03-03] MEDS: Tamsulosin HCL 0.4 MG CAPSULE PO (08:12)
[2024-03-03] MEDS: Phenytoin Sodium Extended 100 MG CAPSULE 200 MG PO ×2 (08:12→21:18)
[2024-03-03] MEDS: Propranolol HCL 10 MG TABLET PO ×2 (08:12→21:19)
[2024-03-03] MEDS: Gabapentin 300 MG CAPSULE PO ×3 (08:12→21:18)
[2024-03-03] MEDS: Finasteride 5 MG TABLET PO (08:12)
[2024-03-03] MEDS: Divalproex Sodium 250 MG TABLET.DR 750 MG PO ×3 (08:13→21:18)
[2024-03-03] MEDS: Tiotropium Bromide 2.5 mcg 1 PUFF/2.5 MCG MIST.INHAL 2 PUFF INHALE (08:17)
--- NOTE | 2024-03-03 13:27 | HO.PSYCHPN ---
Subjective Subjective Date of Service: 03/03/24 Reason For Visit: Schizophrenia Subjective Notes: Conditional Voluntary Interim History: The nursing staff reported the patient had been irritable refused his Seroquel in the morning. He is in a 3 day notice and his discharge will be most likely next Sunday. On interview the patient denies new symptoms he denies suicidal or homicidal thoughts or psychotic symptoms. Mental Status Exam Mental Status Exam Patient Appearance: Appropriate Patient Orientation: Person and Situation Level of Consciousness: Awake and Appropriate Patient Behavior: Guarded and Passive Mood Description: Withdrawn Affect Description: Constricted Patient Cognition Impaired: Yes Ability to Follow Directions: Good Speech Pattern: Clear Hallucinations: None Delusions: Not Present Thought Process: Distracted and Slowed Thinking Thought Content: positive for [place] and positive for Poverty of Content Judgement: Fair Diagnostics Vital Signs (24Hr): Vital Signs - 24 hr 03/02/24 20:00 03/02/24 22:02 03/03/24 08:00 Temperature 100.2 F 98.3 F 98.4 F Pulse Rate 87 92 Respiratory Rate 16 18 18 Blood Pressure 141/64 H 146/81 H Pulse Oximetry 95 95 Oxygen Delivery Method Room Air Room Air BMI result Body Mass Index 29.8 Medications Medications Current Medications Acetaminophen (Acetaminophen 325 Mg Tablet) 650 mg PO Q6H PRN PRN Reason: Headache/Pain Mild Scale (1-3) Al Hydroxide/Mg Hydroxide (Magnesium Hydrox/Alum Hydrox 30 Ml Oral.Susp) 30 ml PO Q6H PRN PRN Reason: Heartburn/Nausea Albuterol Sulfate (Albuterol Sulfate 90 Mcg 8 Gm Inhaler) 4 puff INHALE Q4H PRN PRN Reason: Shortness Of Breath Or Wheezing Last Admin: 02/27/24 18:33 Dose: 4 puff Divalproex Sodium (Divalproex Sodium 250 Mg Tablet.Dr) 750 mg PO TID [facility] Last Admin: 03/03/24 08:13 Dose: 750 mg Finasteride (Finasteride 5 Mg Tablet) 5 mg PO DAILY [facility] Last Admin: 03/03/24 08:12 Dose: 5 mg Gabapentin (Gabapentin 300 Mg Capsule) 300 mg PO TID [facility] Last Admin: 03/03/24 08:12 Dose: 300 mg Guaifenesin/Dextromethorphan (Guaifenesin Dm 200/20/10 Ml 10 Ml Syrup) 10 ml PO Q4H PRN PRN Reason: Cough Last Admin: 03/02/24 20:35 Dose: 10 ml Magnesium Hydroxide (Milk Of Magnesia 30 Ml Oral.Susp) 30 ml PO DAILY PRN PRN Reason: Constipation Nicotine (Nicotine 21 Mg Patch.Td24) 21 mg TRANSDERMA DAILY PRN PRN Reason: smoking cessation Nicotine Polacrilex (Nicotine Polacrilex 2 Mg Gum) 4 mg BUCCAL Q2H PRN PRN Reason: Nicotine Cravings Olanzapine (Olanzapine 5 Mg Tablet) 5 mg PO TID PRN PRN Reason: agitation Omeprazole (Omeprazole 20 Mg Capsule.Dr) 20 mg PO DAILY@0630 [facility] Last Admin: 03/03/24 06:30 Dose: 20 mg Phenytoin Sodium (Phenytoin Sodium Extended 100 Mg Capsule) 200 mg PO BID [facility] Last Admin: 03/03/24 08:12 Dose: 200 mg Propranolol HCl (Propranolol Hcl 10 Mg Tablet) 10 mg PO BID [facility]; Protocol Last Admin: 03/03/24 08:12 Dose: 10 mg Quetiapine Fumarate (Quetiapine Fumarate 300 Mg Tablet) 300 mg PO BEDTIME [facility] Last Admin: 03/02/24 20:30 Dose: 300 mg Quetiapine Fumarate (Quetiapine Fumarate 400 Mg Tablet) 400 mg PO DAILY@1500 [facility] Tamsulosin HCl (Tamsulosin Hcl 0.4 Mg Capsule) 0.4 mg PO DAILY [facility] Last Admin: 03/03/24 08:12 Dose: 0.4 mg Tiotropium [place] (Tiotropium [place] 2.5 Mcg 1 Puff/2.5 Mcg Mist.Inhal) 2 puff INHALE DAILY [facility] Last Admin: 03/03/24 08:17 Dose: 2 puff Trazodone HCl (Trazodone Hcl 50 Mg Tablet) 50 mg PO BEDTIME MRX1 PRN PRN Reason: Insomnia Last Admin: 03/02/24 20:29 Dose: 50 mg Allergies Allergies Allergy/AdvReac Type Severity Reaction Status Date / Time levetiracetam [From [facility]] Allergy Unknown Unknown Verified 02/27/24 00:42 contrast dye Allergy Unknown unknown Uncoded 02/27/24 00:42 Assessment & Plan Assessment & Plan (1) Mood disorder: Status: Acute Code(s): F39 - Unspecified mood [affective] disorder (2) Alcohol use disorder: Status: Acute Code(s): F10.90 - Alcohol use, unspecified, uncomplicated (3) Psychosis: Status: Acute Code(s): F29 - Unspecified psychosis not due to a substance or known physiological condition (4) Homelessness: Status: Acute Code(s): Z59.00 - Homelessness unspecified Plan The patient is an elderly male, single, with no children with poor social support with a past history of alcohol use disorder, chronic homelessness, psychosis and mood lability initially admitted at another hospital for suicidality but later on transferred to [facility] for shortness of breast. Medically cleared and transferred hearing to this facility for continuation of care at this moment the patient denies suicidal ideation. Plan 03/01 dc morning seroquel as pt reports sedation in AM. continue all other doses. Continue with same treatment. Reason for continued inpatient stay Substantial Risk for: inability to function, rapid decompensation and med/psych decompensation Time Spent With Patient Time: Total time managing care of this patient today _20___ minutes.
[2024-03-03 20:00] VITALS: BP 141/67; PULSE 77; RESP 18; TEMP 36.2; O2SAT 94
[2024-03-03] MEDS: QUEtiapine Fumarate 300 MG TABLET PO (21:20)
[2024-03-03] MEDS: traZODone HCL 50 MG TABLET PO (21:20)
[2024-03-03] MEDS: guaiFENesin DM 200/20/10 ML 10 ML SYRUP PO (22:00)
[2024-03-04] MEDS: Omeprazole 20 MG CAPSULE.DR PO (06:07)
[2024-03-04 08:00] VITALS: BP 138/87; PULSE 85; RESP 18; TEMP 36.8; O2SAT 95
[2024-03-04] MEDS: Tamsulosin HCL 0.4 MG CAPSULE PO (08:13)
[2024-03-04] MEDS: Divalproex Sodium 250 MG TABLET.DR 750 MG PO ×3 (08:13→20:55)
[2024-03-04] MEDS: Gabapentin 300 MG CAPSULE PO ×3 (08:13→20:55)
[2024-03-04] MEDS: Propranolol HCL 10 MG TABLET PO ×2 (08:13→20:56)
[2024-03-04] MEDS: Phenytoin Sodium Extended 100 MG CAPSULE 200 MG PO ×2 (08:14→20:56)
[2024-03-04] MEDS: Finasteride 5 MG TABLET PO (08:14)
--- NOTE | 2024-03-04 13:27 | P.PNPSI_ITS ---
Subjective Subjective Date of Service: 03/04/24 Reason For Visit: Schizophrenia Subjective Notes: Conditional Voluntary Interim History: The nursing staff reported the patient has refused his medication in the morning reports over-sedation Seroquel that is why his schedule has been changed. The 7th grade social studies teacher reported that he will be discharged tomorrow. On interview the patient denies new symptoms he feels that he is much better safe. Mental Status Exam Mental Status Exam Patient Appearance: Appropriate Patient Orientation: Person and Situation Level of Consciousness: Awake and Appropriate Patient Behavior: Guarded and Passive Mood Description: Withdrawn Affect Description: Constricted Patient Cognition Impaired: Yes Ability to Follow Directions: Good Speech Pattern: Clear Hallucinations: None Delusions: Not Present Thought Process: Distracted and Slowed Thinking Thought Content: positive for [place] and positive for Poverty of Content Judgement: Fair Diagnostics Vital Signs (24Hr): Vital Signs - 24 hr 03/03/24 20:00 03/04/24 08:00 Temperature 97.2 F 98.2 F Pulse Rate 77 85 Respiratory Rate 18 18 Blood Pressure 141/67 H 138/87 Pulse Oximetry 94 95 Oxygen Delivery Method Room Air Room Air BMI result Body Mass Index 29.8 Medications Medications Current Medications Acetaminophen (Acetaminophen 325 Mg Tablet) 650 mg PO Q6H PRN PRN Reason: Headache/Pain Mild Scale (1-3) Al Hydroxide/Mg Hydroxide (Magnesium Hydrox/Alum Hydrox 30 Ml Oral.Susp) 30 ml PO Q6H PRN PRN Reason: Heartburn/Nausea Albuterol Sulfate (Albuterol Sulfate 90 Mcg 8 Gm Inhaler) 4 puff INHALE Q4H PRN PRN Reason: Shortness Of Breath Or Wheezing Last Admin: 02/27/24 18:33 Dose: 4 puff Divalproex Sodium (Divalproex Sodium 250 Mg Tablet.Dr) 750 mg PO TID [facility] Last Admin: 03/04/24 08:13 Dose: 750 mg Finasteride (Finasteride 5 Mg Tablet) 5 mg PO DAILY [facility] Last Admin: 03/04/24 08:14 Dose: 5 mg Gabapentin (Gabapentin 300 Mg Capsule) 300 mg PO TID [facility] Last Admin: 03/04/24 08:13 Dose: 300 mg Guaifenesin/Dextromethorphan (Guaifenesin Dm 200/20/10 Ml 10 Ml Syrup) 10 ml PO Q4H PRN PRN Reason: Cough Last Admin: 03/03/24 22:00 Dose: 10 ml Magnesium Hydroxide (Milk Of Magnesia 30 Ml Oral.Susp) 30 ml PO DAILY PRN PRN Reason: Constipation Nicotine (Nicotine 21 Mg Patch.Td24) 21 mg TRANSDERMA DAILY PRN PRN Reason: smoking cessation Nicotine Polacrilex (Nicotine Polacrilex 2 Mg Gum) 4 mg BUCCAL Q2H PRN PRN Reason: Nicotine Cravings Olanzapine (Olanzapine 5 Mg Tablet) 5 mg PO TID PRN PRN Reason: agitation Omeprazole (Omeprazole 20 Mg Capsule.Dr) 20 mg PO DAILY@0630 [facility] Last Admin: 03/04/24 06:07 Dose: 20 mg Phenytoin Sodium (Phenytoin Sodium Extended 100 Mg Capsule) 200 mg PO BID [facility] Last Admin: 03/04/24 08:14 Dose: 200 mg Propranolol HCl (Propranolol Hcl 10 Mg Tablet) 10 mg PO BID [facility]; Protocol Last Admin: 03/04/24 08:13 Dose: 10 mg Quetiapine Fumarate (Quetiapine Fumarate 300 Mg Tablet) 300 mg PO BEDTIME [facility] Last Admin: 03/03/24 21:20 Dose: 300 mg Quetiapine Fumarate (Quetiapine Fumarate 400 Mg Tablet) 400 mg PO DAILY@1500 [facility] Last Admin: 03/03/24 14:41 Dose: Not Given Tamsulosin HCl (Tamsulosin Hcl 0.4 Mg Capsule) 0.4 mg PO DAILY [facility] Last Admin: 03/04/24 08:13 Dose: 0.4 mg Tiotropium [place] (Tiotropium [place] 2.5 Mcg 1 Puff/2.5 Mcg Mist.Inhal) 2 puff INHALE DAILY [facility] Last Admin: 03/04/24 08:18 Dose: Not Given Trazodone HCl (Trazodone Hcl 50 Mg Tablet) 50 mg PO BEDTIME MRX1 PRN PRN Reason: Insomnia Last Admin: 03/03/24 21:20 Dose: 50 mg Allergies Allergies Allergy/AdvReac Type Severity Reaction Status Date / Time levetiracetam [From [facility]] Allergy Unknown Unknown Verified 02/27/24 00:42 contrast dye Allergy Unknown unknown Uncoded 02/27/24 00:42 Assessment & Plan Assessment & Plan (1) Mood disorder: Status: Acute Code(s): F39 - Unspecified mood [affective] disorder (2) Alcohol use disorder: Status: Acute Code(s): F10.90 - Alcohol use, unspecified, uncomplicated (3) Psychosis: Status: Acute Code(s): F29 - Unspecified psychosis not due to a substance or known physiological condition (4) Homelessness: Status: Acute Code(s): Z59.00 - Homelessness unspecified Plan The patient is an elderly male, single, with no children with poor social support with a past history of alcohol use disorder, chronic homelessness, psychosis and mood lability initially admitted at another hospital for suicidality but later on transferred to [facility] for shortness of breast. Medically cleared and transferred hearing to this facility for continuation of care at this moment the patient denies suicidal ideation. Plan 1. Continue with Seroquel and other neuroleptics. 2. The patient will be discharged tomorrow since he signed a 3 day notice. Reason for continued inpatient stay Substantial Risk for: inability to function, rapid decompensation and med/psych decompensation Time Spent With Patient Time: Total time managing care of this patient today __20__ minutes.
--- NOTE | 2024-03-04 18:14 | MHC.EVENTN ---
At 18:00 the information desk informed the unit that Abelino Cardoso belongings were dropped off by [facility]. Belongs had a paper stated what the patient had. The paper states that the patient had Phentonin 100 mg, Quetiapine 300 mg, Flomax 0.4mg, and Finansteride 5mg. Upon checking belongs to match the list given these items were not there. Avis Chambers and this lead technical writer did the checking of the content of the belongings of the bag.
[2024-03-04 20:00] VITALS: BP 144/70; PULSE 96; RESP 18; TEMP 36.9; O2SAT 94
[2024-03-05] MEDS: Omeprazole 20 MG CAPSULE.DR PO (06:17)
[2024-03-05 07:55] VITALS: BP 144/79; PULSE 93; RESP 18; TEMP 36.8; O2SAT 96
[2024-03-05] MEDS: Divalproex Sodium 250 MG TABLET.DR 750 MG PO (08:06)
[2024-03-05] MEDS: Tamsulosin HCL 0.4 MG CAPSULE PO (08:07)
[2024-03-05] MEDS: Finasteride 5 MG TABLET PO (08:07)
[2024-03-05] MEDS: Propranolol HCL 10 MG TABLET PO (08:07)
[2024-03-05] MEDS: Phenytoin Sodium Extended 100 MG CAPSULE 200 MG PO (08:07)
[2024-03-05] MEDS: Gabapentin 300 MG CAPSULE PO (08:07)
--- NOTE | 2024-03-05 08:16 | PM.PSYDC ---
DS: Providers Provider Date of Service: 03/05/24 Date of admission: 02/27/24 00:55 Date of discharge: 03/05/24 Primary care physician: Brooke Physician Attending physician on admission: Jean Nowka Consults: 02/27/24 00:48 Consult to Hospitalist Routine Comment: Consulting Provider: Hospitalist Reason For Exam: admission physical Attending physician on discharge: Jean Nowak DS: Diagnosis Discharge Diagnosis (1) Mood disorder: Status: Acute (2) Alcohol use disorder: Status: Acute (3) Psychosis: Status: Acute (4) Homelessness: Status: Acute DS: Medications Discharge Medications Home Medications: Home Medications ?Medication ?Instructions ?Recorded ?Confirmed quetiapine 400 mg tablet 400 mg PO BID 02/27/24 02/27/24 Previous Rx's ?Medication ?Instructions ?Recorded albuterol sulfate 90 mcg/actuation 4 puff inhalation Q4H PRN 03/05/24 aerosol inhaler (Ventolin HFA) Shortness Of Breath Or Wheezing #1 inhaler dextromethorphan-guaifenesin 10 10 ml PO Q4H PRN Cough 30 days 03/05/24 mg-100 mg/5 mL oral syrup #120 mL divalproex 250 mg tablet,delayed 750 mg (3 x 250 mg) PO TID 30 days 03/05/24 release (Depakote) #270 tabs finasteride 5 mg tablet 5 mg PO DAILY 30 days #30 tabs 03/05/24 gabapentin 300 mg capsule 300 mg PO TID 30 days #90 caps 03/05/24 pantoprazole 20 mg tablet,delayed 20 mg PO DAILY 30 days #30 tabs 03/05/24 release phenytoin sodium extended 200 mg 200 mg PO BID 30 days #60 caps 03/05/24 capsule propranolol 10 mg tablet 10 mg PO BID 30 days #60 tabs 03/05/24 quetiapine 300 mg tablet 300 mg PO BEDTIME 30 days #30 tabs 03/05/24 quetiapine 400 mg tablet 400 mg PO DAILY@1500 30 days #30 03/05/24 tabs tamsulosin 0.4 mg capsule 0.4 mg PO DAILY 30 days #30 caps 03/05/24 tiotropium bromide 2.5 2 puff inhalation DAILY #1 inhaler 03/05/24 mcg/actuation mist for inhalation trazodone 50 mg tablet 50 mg PO BEDTIME MRX1 PRN Insomnia 03/05/24 30 days #30 tabs Mental Status Exam Mental Status Exam Patient Appearance: Well Grooomed and Appropriate Patient Orientation: Person and Situation Level of Consciousness: Awake and Appropriate Patient Behavior: Guarded and Passive Mood Description: Withdrawn Affect Description: Constricted Patient Cognition Impaired: Yes Ability to Follow Directions: Good Speech Pattern: Clear Hallucinations: None Delusions: Not Present Thought Process: Distracted and Slowed Thinking Thought Content: positive for [place] and positive for Poverty of Content Judgement: Fair DS: Summary Hospital Course Hospital Course: The patient is a 68-year-old male, single, with no children, unemployed, chronically homeless with a past history of schizoaffective disorder bipolar type was initially admitted from [place] to [facility] for exacerbation of psychosis and suicidality, he decompensated medically and was transferred to [facility]. After being medically cleared he was transferring to this facility for continuation of care. Please see the HPI of the admission note for further details. On admission, the patient reported a chronic history of mental illness, poor social support and chronic homelessness. On admission he reported that he was feeling better since his Seroquel was restarted but he reported over-sedation with the Seroquel in the morning so we change it mostly in the afternoon. The patient complained sporadically of auditory hallucinations that resolved with PRNs Seroquel and Zyprexa. The patient was initially signed a conditional voluntary but later on he wanted to be discharged. He was mostly focus on his belongings that were stayed behind at another hospital. The patient adamantly denied suicidal or homicidal thoughts or psychotic symptoms, he wanted to be discharged and signed a 3 day notice. The patient did not show any safety concerns, he wanted to be discharged back to his regular network in the [place] [facility]. Since there were no safety concerns discharge planning was discussed. Time spent discussing smoking cessation with patient: 3 to 10 minutes Status at Discharge Cognitive/behavioral status at discharge: Stable Functional status at discharge: independent ambulation Overall status at discharge: patient is back to baseline Time Spent with Patient Time attestation: Total time managing care of this patient today __30__ minutes. Time spent: Less than 30 minutes Discharge Plan Discharge Anticipated Discharge Date/Time: 03/05/24 10:00 Patient Disposition: Home, Self-Care Discharge Diagnosis: Schizoaffective disorder depressed type Alcohol use disorder in early remission Homelessness Referrals: Dr Villa [facility] [Other] - 03/10/24 10:00 am (Your next primary care appointment with Dr Rivera is scheduled for 03/10/24 at 10AM in the [facility] office. ) Discharge Medications: New trazodone 50 mg Tablet 50 mg PO BEDTIME MRX1 PRN (Reason: Insomnia) 30 Days Qty: 30 0RF quetiapine 400 mg Tablet 400 mg PO DAILY@1500 30 Days Qty: 30 0RF Continued quetiapine 300 mg Tablet 300 mg PO BEDTIME 30 Days Qty: 30 0RF divalproex [Depakote] 250 mg Tablet,Delayed Release (Dr/Ec) 750 mg PO TID 30 Days Qty: 270 0RF phenytoin sodium extended 200 mg Capsule 200 mg PO BID 30 Days Qty: 60 0RF dextromethorphan-guaifenesin 10-100 mg/5 mL Syrup 10 ml PO Q4H PRN (Reason: Cough) 30 Days Qty: 120 0RF pantoprazole 20 mg Tablet,Delayed Release (Dr/Ec) 20 mg PO DAILY 30 Days Qty: 30 0RF propranolol 10 mg Tablet 10 mg PO BID 30 Days Qty: 60 0RF tamsulosin 0.4 mg Capsule 0.4 mg PO DAILY 30 Days Qty: 30 0RF gabapentin 300 mg Capsule 300 mg PO TID 30 Days Qty: 90 0RF albuterol sulfate [Ventolin HFA] 90 mcg/actuation Hfa Aerosol Inhaler 4 puff INHALATION Q4H PRN (Reason: Shortness Of Breath Or Wheezing) Qty: 1 0RF finasteride 5 mg Tablet 5 mg PO DAILY 30 Days Qty: 30 0RF tiotropium bromide 2.5 mcg/actuation Mist 2 puff INHALATION DAILY Qty: 1 0RF Discontinued quetiapine 400 mg Tablet 400 mg PO BID Rx Instructions: in morning and noon Discharge Orders: Discharge Order (Routine); Ordered 03/05/24 Ordered By: Jean Nowak Diet: Advance to usual diet Activity on Discharge: As tolerated Stand Alone Forms: Patient Portal Discharge page Print Language: Pashto Care Plan Goals: Care plan goals achieved in this admission Health Concerns: Continue treatment with primary care physician and other outpatient providers. Plan of Treatment: Continue treatment as an outpatient Assessment: The patient is a 68-year-old male with a past history of schizoaffective disorder depressed type, alcohol use disorder in early remission, several psychosocial stressors such as poor social support and chronic homelessness transferred from [facility] after being medically cleared. While he was here we continue with his regular medications there were no safety concerns and he signed a 3 day notice. The patient has capacity to take informed decisions. Since there were no safety concerns discharge planning was discussed.
== END 2024-03-05 10:40 | disposition home or self-care (01) | DRG 885 ==
PROVIDERS: Admitting Provider Psychiatry & Neurology Psychiatry; Visit Provider Psychiatry & Neurology Psychiatry
DX: F25.1 Schizoaffective disorder, depressive type (principal); Z59.02 Unsheltered homelessness; F10.90 Alcohol use, unspecified, uncomplicated; J44.9 Chronic obstructive pulmonary disease, unspecified; G40.909 Epilepsy, unspecified, not intractable, without status epilepticus; Z85.118 Personal history of other malignant neoplasm of bronchus and lung; Z59.72 Insufficient welfare support; Z79.899 Other long term (current) drug therapy

== ENCOUNTER → 2024-02-27 00:55 | Outpatient (BNV) | payer MEDICARE, SELFPAY | PROVIDERS: Admitting Provider Psychiatry & Neurology Psychiatry; Visit Provider Psychiatry & Neurology Psychiatry | DX: F39 Unspecified mood [affective] disorder (principal); F29 Unspecified psychosis not due to a substance or known physiological condition; F10.90 Alcohol use, unspecified, uncomplicated; Z59.00 Homelessness unspecified | CPT/HCPCS: 90792; 99231; 99232; 99238 ==